=== PATIENT | female | born 1995 | race Caucasian/White ===

== ENCOUNTER 2025-03-30 09:54 | Emergency (ER) | payer OTHER, SELFPAY ==
[2025-03-30 09:55] VITALS: BP 131/92; PULSE 82; RESP 14; TEMP 36.1; O2SAT 98; BMI 32.2
--- NOTE | 2025-03-30 10:27 | EKG12_ITS ---
Test Reason : SYNCOPE Blood Pressure : */* mmHG Vent. Rate : 51 BPM Atrial Rate : 51 BPM P-R Int : 152 ms QRS Dur : 90 ms QT Int : 418 ms P-R-T Axes : 48 36 13 degrees QTcB Int : 385 ms Sinus bradycardia with sinus arrhythmia Otherwise normal ECG Confirmed by Ray Olson ([id number]), multimedia editor ALVIN VILLELA ([id number]) on 04/02/2025 1:07:24 PM Referred By: Confirmed By: Ray Olson
--- NOTE | 2025-03-30 10:27 | RAD_ITS ---
PROCEDURE: CHEST 1 VIEW (PORTABLE) 03/30/2025 REASON FOR EXAM: CHEST PAIN TECHNIQUE: Frontal view of the chest. COMPARISON: None FINDINGS: Hardware: EKG electrodes. Heart: The heart size is normal. Lungs: The lungs are clear. Bones: The bones are unremarkable. Other: RAD/Chest 1 View (Portable) IMPRESSION: No Acute Findings. Reading Location: [id number]
--- NOTE | 2025-03-30 10:27 | EDS_ITS ---
HPI History of Present Illness Chief Complaint: Syncope Informant: patient Narrative Narrative: 29-year-old female presents after syncopal episode. 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 She denies any pain or injury. She states she ate this morning prior to this, and she had this happen 1 other time. She did a Holter monitor for 6 days, she showed me the results from [facility] and her chart, showing a basically she had a couple of short runs of PVCs and no other events or dysrhythmias. She denies any leg pain or swelling. No history of DVT or PE. No recent long travel or immobilization, no hospitalization or surgery recently. She denies any prodromal chest discomfort, dyspnea, headache, focal neurologic symptoms. [facility] Medical History (Updated 03/30/25 @ 13:[address] Ashutosh Rdz MD) Anxiety and depression Allergy/AdvReac Type Severity Reaction Status Date / Time cephalexin (From [facility]) Allergy RASH Verified 03/30/25 09:56 clindamycin Allergy Rash Verified 03/30/25 09:56 doxycycline Allergy RASH Verified 03/30/25 09:56 fentanyl Allergy Anaphylaxis Verified 03/30/25 09:56 Social History Smoking Status: Never smoker [facility] ED Constitutional Constitutional ED: Denies chills or fever(s) Eyes Eyes: Denies change in vision or diplopia ENT ENT ED: Denies rhinorrhea or sore throat Cardiovascular Cardiovascular: Reports syncope; Denies abdominal pain, chest pain, dyspnea, palpitations, radiating jaw, neck or arm pain or rapid heart rate Respiratory/Chest Respiratory/Chest: Denies cough or dyspnea Gastrointestinal Gastrointestinal: Denies abdominal pain, diarrhea, nausea or vomiting Genitourinary Genitourinary ED: Denies dysuria or hematuria Musculoskeletal Musculoskeletal: Denies back pain or neck pain Integumentary Denies abscess or rash Neurologic Neurologic: Denies headache(s), paresthesias or weakness Psychiatric Psychiatric: Denies anxiety or suicidal thoughts EXAM Physical Exam Const Vital Signs: 03/30/25 09:55 03/30/25 09:55 03/30/25 10:27 Temperature 96.9 F L Temperature Source Temporal Pulse Rate 82 Pulse Rate [Lying] Pulse Rate [Sitting (for 1 minute prior to obtaining)] Pulse Rate [Standing (for 1 minute prior to obtaining)] Respiratory Rate 14 Respiratory Pattern Normal Blood Pressure 131/92 H Blood Pressure [Lying] Blood Pressure [Sitting (for 1 minute prior to obtaining)] Blood Pressure [Standing (for 1 minute prior to obtaining)] Blood Pressure Mean 105 Blood Pressure Mean [Lying] Blood Pressure Mean [Sitting (for 1 minute prior to obtaining)] Blood Pressure Mean [Standing (for 1 minute prior to obtaining)] Pulse Ox 98 Oxygen Delivery Method Room Air Room Air 03/30/25 11:35 03/30/25 11:55 03/30/25 13:00 Temperature Temperature Source Pulse Rate 89 78 Pulse Rate [Lying] 56 L Pulse Rate [Sitting (for 1 minute prior to obtaining)] 54 L Pulse Rate [Standing (for 1 minute prior to obtaining)] 69 Respiratory Rate 18 16 Respiratory Pattern Blood Pressure 134/78 H Blood Pressure [Lying] 115/62 Blood Pressure [Sitting (for 1 minute prior to obtaining)] 117/66 Blood Pressure [Standing (for 1 minute prior to obtaining)] 113/79 Blood Pressure Mean 96 Blood Pressure Mean [Lying] 79 Blood Pressure Mean [Sitting (for 1 minute prior to obtaining)] 83 Blood Pressure Mean [Standing (for 1 minute prior to obtaining)] 90 Pulse Ox 98 98 Oxygen Delivery Method Room Air Room Air Positive well nourished and well developed General Appearance ED: well developed and NAD HEENT Reports moist mucous membranes normocephalic and atraumatic Eyes PERRL and EOMs intact bilaterally Neck full ROM and supple Resp normal respiratory effort and clear to auscultation bilaterally Cardio regular rate, regular rhythm and no murmurs GI non-tender and non-distended Auscultation: normoactive bowel sounds Palpation: soft Back/Spine no CVA tenderness General Back: other FROM Extremity normal to inspection General Extremety ED: Negative for edema, pulses abnormal or tenderness General Extremity: Negative for edema or pulses abnormal Neuro oriented x3, CN's II-XII intact bilaterally and no sensory deficits noted Sensorium / Orientation: awake and alert Motor Exam: strength 5/5 throughout Skin no rashes or lesions noted and no wounds MDM MDM MDM Narrative Medical decision making narrative: Patient's PERC score 0, obviating the need for further workup in order to rule out PE causing this episode. Her EKG is normal. Orthostatics were performed and labs were obtained. All negative/normal. negative ruling out ectopic, repeat troponin normal single digits. She is ambulatory in the department with normal vital signs. We did a two-view chest x-ray to screen for mediastinal abnormalities, my interpretation is normal radiology was in agreement. At this time I think this is a low risk syncope and she can follow- up with her doctor as an outpatient. History & Record Review Additional record(s) reviewed:: Prior outpatient record (Holter results showing PVCs) Lab Data Attestation: I reviewed the patient's lab results. Labs: Laboratory Results - last 24 hr 03/30/25 03/30/25 03/30/25 10:15 11:41 12:17 WBC 7.4 RBC 4.54 Hgb 14.3 Hct 41.9 MCV 92.3 MCH 31.5 MCHC 34.1 RDW Std Deviation 43.5 RDW Coeff of Ana M 12.9 Plt Count 260 MPV 10.8 Immature Gran % (Auto) 0.100 Neut % (Auto) 66.1 Lymph % (Auto) 21.9 [place] % (Auto) 8.4 Eos % (Auto) 3.0 Baso % (Auto) 0.5 Absolute Neuts (auto) 4.9 Absolute Lymphs (auto) 1.62 Nucleated RBC % 0 Sodium 136 Potassium 4.4 Chloride 104 Carbon Dioxide 22.9 Anion Gap 10 BUN 12 Creatinine 0.83 Estim Creat Clear Calc 104.61 Est GFR (MDRD) Non-Af 97 BUN/Creatinine Ratio 14.0 Glucose 82 Calcium 9.2 Troponin T High Sens < 6 Troponin T Hi Sens 2 Hr 6 Urine Test Negative Radiography Diagnostic Testing: Clinical Impression(s) from Imaging Studies Chest X-Ray 03/30/25 10:27 IMPRESSION: No Acute Findings. Reading Location: [id number] Rhythm Strip Rhythm Strip: Sinus Rhythm Rate: 50 Ectopy: None EKG Initial EKG: Attestation: I personally reviewed and interpreted this EKG as follows: Interpretation: No Acute Injury Pattern and Sinus Bradycardia Comments: Nml axis & intervals; nml EKG Discharge Plan Triage Chief Complaint: Syncope ED Provider: Ashutosh Rdz Dx/Rx/DC Orders Clinical Impression: Syncope Instructions: Causes of Syncope Stand Alone Forms: ED Work / School Excuse Primary Care Provider: Anna Doe Referrals: Anna Doe, FOOD SERVICE ORDER CLERK-C [Primary Care Provider] - 5-7 Days Print Language: R[place] Disposition Disposition: Home, Self Care
[2025-03-30 10:43] LABS: Hematocrit 41.9 % (37-47); Hemoglobin 14.3 g/dL (12.0-15.0); Immature Granulocytes Count 0.010 X10^3/uL (0.0-0.0); Mean Corp Hgb Conc 34.1 g/dL (32-36); Mean Corpuscular Volume 92.3 fL (81-99); Mean Platelet Vol. 10.8 fl (6.2-12.0); NRBC Flagged by Analyzer 0 % (0-5); Platelet Count 260 K/mm3 (150-450); RBC Distribution Width CV 12.9 % (11.6-14.6); RBC Distribution Width SD 43.5 fl (35.1-43.9); Red Blood Count 4.54 M/mm3 (4.2-5.4); White Blood Count 7.4 K/mm3 (4.4-11.0)
[2025-03-30 11:30] LABS: Anion Gap 10 (5-15); BUN 12 mg/dL (4-19); BUN/Creat Ratio 14.0 RATIO (10-20); Calcium,Total 9.2 mg/dL (7.6-11.0); Carbon Dioxide 22.9 mmol/L (21.0-32.0); Chloride 104 mmol/L (98-108); Estimated Creatinine Clearance 104.61 ml/min (50-250); Glucose 82 mg/dL (70-99); Potassium 4.4 mmol/L (3.3-5.1); Troponin T High Sensitivity < 6 ng/L (<=14)
[2025-03-30 11:35] VITALS: BP 113/79; BP 115/62; BP 117/66; PULSE 54; PULSE 56; PULSE 69
[2025-03-30 11:50] LABS: Internal QC Validated? YES +Cl - CLEAR BKGD; Pregnancy, Urine Negative Negative; Record Kit Lot#,Urine Preg 0000964736
[2025-03-30 11:55] VITALS: PULSE 89; RESP 18; O2SAT 98
[2025-03-30 12:58] LABS: Troponin T High Sens 2 HR 6 ng/L (<=14)
[2025-03-30 13:00] VITALS: BP 134/78; PULSE 78; RESP 16; O2SAT 98
[2025-03-30 13:36] VITALS: BP 108/78; PULSE 76; RESP 16; TEMP 37.1; O2SAT 99
== END 2025-03-30 13:37 | disposition home or self-care (01) ==
PROVIDERS: Emergency Provider Emergency Medicine; PCP Nurse Practitioner Family; Visit Provider Emergency Medicine
DX: R55 Syncope and collapse (principal)
CPT/HCPCS: 71045; 80048; 81025; 84484; 85025; 93005; 99285; A4216